=== PATIENT | female | born 1995 | race Caucasian/White ===

== ENCOUNTER 2024-10-06 23:47 | Observation (INO) | payer OTHER ==
--- NOTE | 2024-10-07 00:34 | ED ---
General Adult HPI - General Chief complaint: Abdominal Pain Stated complaint: ABD pain, SOB Time Seen by Provider: 10/06/24 23:50 Source: patient Mode of arrival: ambulatory Limitations: no limitations - History of Present Illness Initial comments: Dictation was produced using Panel[employer] dictation software. please excuse any grammatical, word or spelling errors. Chief Complaint: 28-year-old female with abdominal pain History of Present Illness: Patient is a 28-year-old female was seen by IVF specialist. She had a retrieval procedure performed at [facility] at 10 AM yesterday. Since then she was having significant abdominal pain. Denies any fever, chills or night sweats states that whenever she tries to twist or stand up straight she has upper abdominal pain. Patient denies any bleeding. The ROS documented in this emergency department record has been reviewed and confirmed by me. Those systems with pertinent positive or negative responses have been documented in the HPI. All other systems are other negative and/or noncontributory. - Related Data Allergies Allergy/AdvReac Type Severity Reaction Status Date / Time No Known Allergies Allergy Verified 10/06/24 23:53 Review of Systems ROS Statement: Those systems with pertinent positive or pertinent negative responses have been documented in the HPI. ROS Other: All systems not noted in ROS Statement are negative. Past Medical History Past Medical History: No Reported History History of Any Multi-Drug Resistant Organisms: None Reported Past Surgical History: No Surgical Hx Reported Past Psychological History: Anxiety Smoking Status: Never smoker Past Alcohol Use History: Occasional Past Drug Use History: None Reported General Exam - General Exam Comments Initial Comments: PHYSICAL EXAM: General Impression: Alert and oriented x3, acute distress secondary to pain HEENT: Normocephalic atraumatic, extra-ocular movements intact, pupils equal and reactive to light bilaterally, mucous membranes moist. Cardiovascular: Heart regular rate and rhythm Chest: Able to complete full sentences, no retractions, no tachypnea Abdomen: abdomen soft, diffuse abdominal tenderness, non-distended, no organomegaly Musculoskeletal: Pulses present and equal in all extremities, no peripheral edema Motor: no focal deficits noted Neurological: CN II-XII grossly intact, no focal motor or sensory deficits noted Skin: Intact with no visualized rashes Psych: Normal affect and mood Limitations: no limitations Course Vital Signs 10/06/24 10/07/24 23:50 02:11 Temperature 98.1 F 98.4 F Pulse Rate 82 68 Respiratory 18 18 Rate Blood Pressure 106/69 110/66 O2 Sat by Pulse 100 99 Oximetry - Reevaluation(s) Reevaluation #1: 10/07/24 03:[address] Tami Anthony of [facility] who is familiar with the patient. She was able to access patient's labs which showed that she had a hematocrit of 39 on her most recent blood work. She states that she request that patient have serial hemoglobins hematocrits and monitoring to determine need for any sort of subsequent intervention. She reiterates that typically these do not require any further intervention. Medical Decision Making - Medical Decision Making Was pt. sent in by a medical professional or institution (, PA, SPINE SUPERVISOR, urgent care, hospital, or senior care...) When possible be specific @ -No Did you speak to anyone other than the patient for history (EMS, parent, family, police, friend...)? What history was obtained from this source @ -No Did you review nursing and triage notes (agree or disagree)? Why? @ -I reviewed and agree with nursing and triage notes Were old charts reviewed (outside hosp., previous admission, EMS record, old EKG, old radiological studies, urgent care reports/EKG's, senior care records)? Report findings @ -No old charts were reviewed Differential Diagnosis (chest pain, altered mental status, abdominal pain women, abdominal pain men, vaginal bleeding, musculoskeletal, weakness, fever, dyspnea, syncope, headache, dizziness, GI bleed, back pain, seizure, CVA, palpatations, mental health)? @ -Differential Abdominal Pain Women: Appendicitis, Cholecystitis, diverticulosis, ischemic bowel, pancreatitis, hepatitis, UTI, gastroenteritis, AAA, incarcerated hernia, bowel obstruction, constipation, inflammatory bowel, hepatitis, peptic ulcer disease, splenic infarction, perforated viscus, vulvitis, ovarian torsion, PID, kidney stone, placenta abruption, this is not meant to be an all-inclusive list EKG interpreted by me (3pts min.). @ -None done X-rays interpreted by me (1pt min.). @ -None done CT interpreted by me (1pt min.). @ -CT shows hemoperitoneum likely related to recent procedure with some heterogeneity around the left ovary U/S interpreted by me (1pt. min.). @ -None done What testing was considered but not performed or refused? (CT, X-rays, U/S, labs)? Why? @ -None What meds were considered but not given or refused? Why? @ -None Was smoking cessation discussed for >3mins.? @ -No Were there social determinants of health that impacted care today? How? (Homelessness, low income, unemployed, alcoholism, drug addiction, transportation, low edu. Level, literacy, decrease access to med. care, detention, rehab)? @ -No Was there de-escalation of care discussed even if they declined (Discuss DNR or withdrawal of care, Hospice)? DNR status @ -No What co-morbidities impacted this encounter? (DM, HTN, Smoking, COPD, CAD, Cancer, CVA, ARF, Chemo, Hep., AIDS, mental health diagnosis, sleep apnea, morbid obesity)? @ -None Was patient admitted / discharged? Hospital course, mention meds given and route, prescriptions, significant lab abnormalities, going to OR and other pertinent info. @ -28-year-old female presents to the emergency department with abdominal pain after a retrieval procedure performed at [facility]. Vital signs stable. Patient on initial arrival. To be uncomfortable in acute distress secondary to abdominal pain. Laboratory evaluation obtained. Labs within acceptable limits. CT obtained showing hemoperitoneum likely related to recent reproductive medicine procedure. Case discussed with Dr. Tami Anthony requests observation admission with every 3 hour CBCs and serial abdominal exams. Case discussed with Dr. Sanchez who is agreeable with observation admission. Did you discuss the management of the patient with other professionals (professionals i.e. , PA, SPINE SUPERVISOR, lab, RT, psych nurse, social work associate, hand expansion envelope maker, teacher, security public safety officer, case investigator)? Give summary @ -See above Was critical care preformed (if so, how long)? @ -No Undiagnosed new problem with uncertain prognosis? @ -No Drug Therapy requiring intensive monitoring for toxicity (Heparin, Nitro, Ins ulin, Cardizem)? @ -No Were any procedures done? @ -No Diagnosis/symptom? Acute, or Chronic, or Acute on Chronic? Uncomplicated (without systemic symptoms) or Complicated (systemic symptoms)? @ -Postprocedural hemoperitoneum Side effects of treatment? @ -No Exacerbation, Progression, or Severe Exacerbation? @ -No Poses a threat to life or bodily function? How? (Chest pain, USA, [place], pneumonia, PE, COPD, DKA, ARF, appy, cholecystitis, CVA, Diverticulitis, Homicidal, Suicidal, threat to staff... and all critical care pts) @ -yes - Lab Data Result diagrams: 10/07/24 00:46 10/07/24 00:46 Lab Results 10/07/24 10/07/24 Range/Units 00:46 00:46 WBC 13.38 H (4.50-10.00) 10*3/uL RBC 3.36 L (4.10-5.20) 10*6/uL Hgb 10.6 L (12.0-15.0) g/dL Hct 29.4 L (37.2-46.3) % MCV 87.5 (80.0-97.0) fL MCH 31.5 (27.0-32.0) pg MCHC 36.1 (32.0-37.0) g/dL Plt Count 300 (140-440) 10*3/uL MPV 10.7 (9.5-12.2) fL Immature Gran % (Auto) 0.3 % Neutrophils % 84.7 % Lymphocytes % 8.2 % Monocytes % 6.6 % Eosinophils % 0.1 % Basophils % 0.1 % Immature Gran # 0.04 (0.00-0.04) 10*3/uL Neutrophils # 11.33 H (1.80-7.70) 10*3/uL Lymphocytes # 1.10 (0.90-5.00) 10*3/uL Monocytes # 0.88 (0.20-1.00) 10*3/uL Eosinophils # 0.01 L (0.04-0.35) 10*3/uL Basophils # 0.02 (0.00-0.10) 10*3/uL Sodium 136 L (137-145) mmol/L Potassium 4.2 (3.5-5.1) mmol/L Chloride 104 (98-107) mmol/L Carbon Dioxide 22 (22-30) mmol/L Anion Gap 10 mmol/L BUN 12 (7-17) mg/dL Creatinine 0.63 (0.52-1.04) mg/dL Est GFR (CKD-EPI)AfAm >90 (>60 ml/min/1.73 sqM) Est GFR (CKD-EPI)NonAf >90 (>60 ml/min/1.73 sqM) Glucose 118 H (74-99) mg/dL Calcium 9.6 (8.4-10.2) mg/dL Total Bilirubin 0.2 (0.2-1.3) mg/dL AST 20 (14-36) U/L ALT 17 (4-34) U/L Alkaline Phosphatase 68 (38-126) U/L Total Protein 6.6 (6.3-8.2) g/dL Albumin 4.0 (3.5-5.0) g/dL Lipase 90 (23-300) U/L Disposition Clinical Impression: Hemoperitoneum Disposition: ADMITTED IP TO THIS [facility] Condition: Fair Referrals: None,Stated [Primary Care Provider] - 1-2 days Decision Time: 03:45
[2024-10-07] MEDS: MORPHINE SULFATE 4 MG/ML SYRINGE IV STA (00:57)
[2024-10-07] MEDS: SODIUM CHLORIDE 0.9% 1,000 ML IV STA (00:57)
[2024-10-07 01:17] LABS: Basophils # (A) 0.02 10*3/uL (0.00-0.10); Basophils % (A) 0.1 %; Eosinophils # (A) 0.01 10*3/uL (0.04-0.35); Eosinophils % (A) 0.1 %; HCT 29.4 % (37.2-46.3); HGB 10.6 g/dL (12.0-15.0); Lymphocytes % (A) 8.2 %; MCH 31.5 pg (27.0-32.0); MCHC 36.1 g/dL (32.0-37.0); MCV 87.5 fL (80.0-97.0); Mean Platelet Volume 10.7 fL (9.5-12.2); Monocytes # (A) 0.88 10*3/uL (0.20-1.00); Monocytes % (A) 6.6 %; Neutrophils # (A) 11.33 10*3/uL (1.80-7.70); Neutrophils % (A) 84.7 %; Platelet Count 300 10*3/uL (140-440); RBC 3.36 10*6/uL (4.10-5.20); RDW 12.7 % (11.5-14.5); WBC 13.38 10*3/uL (4.50-10.00)
[2024-10-07 01:26] LABS: ALT 17 U/L (4-34); AST 20 U/L (14-36); African American GFR (CKD) >90 (>60 ml/min/1.73 sqM); Alkaline Phosphatase 68 U/L (38-126); Anion Gap 10 mmol/L; Blood Urea Nitrogen 12 mg/dL (7-17); Calcium 9.6 mg/dL (8.4-10.2); Carbon Dioxide 22 mmol/L (22-30); Chloride 104 mmol/L (98-107); Glucose 118 mg/dL (74-99); Lipase 90 U/L (23-300); Non-African American GFR(CKD) >90 (>60 ml/min/1.73 sqM); Potassium 4.2 mmol/L (3.5-5.1); Sodium 136 mmol/L (137-145); Total Bilirubin 0.2 mg/dL (0.2-1.3); Total Protein 6.6 g/dL (6.3-8.2)
[2024-10-07] MEDS: HYDROmorphone 1 MG/ML 1 ML SYRINGE IVP STA (02:10)
--- NOTE | 2024-10-07 02:23 | CT ---
EXAM: CT Abdomen and Pelvis With Intravenous Contrast CLINICAL HISTORY: post egg retrieval abdominal pain and is now having abdominal pain. TECHNIQUE: Axial computed tomography images of the abdomen and pelvis with intravenous contrast. Coronal and sagittal reconstructions are performed. CTDI is 14.5 mGy and DLP is 704.9 mGy-cm. This CT exam was performed using one or more of the following dose reduction techniques: automated exposure control, adjustment of the mA and/or kV according to patient size, and/or use of iterative reconstruction technique. 674 images COMPARISON: No relevant prior studies available. FINDINGS: Lung bases: Unremarkable. No mass. No consolidation. ABDOMEN: Liver: Unremarkable. No mass. Gallbladder and bile ducts: Unremarkable. No calcified stones. No ductal dilation. Pancreas: Unremarkable. No mass. No ductal dilation. Spleen: Unremarkable. No splenomegaly. Adrenals: Unremarkable. No mass. Kidneys and ureters: Unremarkable. No solid mass. No hydronephrosis. Stomach and bowel: Unremarkable. No obstruction. No mucosal thickening. PELVIS: Appendix: No findings to suggest acute appendicitis. Bladder: Unremarkable. No mass. Reproductive: Unremarkable as visualized. ABDOMEN and PELVIS: Intraperitoneal space: Small to moderate amount of hemoperitoneum, predominant in the pelvis, extending to abdomen, surrounding liver and spleen, likely related to recent procedure. Bilateral adnexa appear enlarged, poorly visualized. The left adnexa is more hyperdense compared to contralateral side on series 202 image 61, probably source of hemoperitoneum. No free air. Bones/joints: No acute findings. Soft tissues: Unremarkable. Vasculature: Unremarkable. No abdominal aortic aneurysm. Lymph nodes: Unremarkable. No enlarged lymph nodes. IMPRESSION: 1. Small to moderate amount of hemoperitoneum, predominant in the pelvis, extending to abdomen, surrounding liver and spleen, likely related to recent procedure. 2. The left adnexa is more hyperdense compared to contralateral side, probably source of hemoperitoneum. Please correlate with procedural history. <MYCVCSECTION> Communications: 10/07/24 02:29 Verify Receipt Verified receipt with LETY Dang in ER for Dr. Banks on 10/07 02:29 (-04:00)
[2024-10-07] MEDS ORDERED: NALOXONE 0.4 MG/ML 1 ML VIAL IV PRN (03:40)
[2024-10-07] MEDS: SODIUM CHLORIDE 0.9% 1,000 ML IV SCH (04:09)
[2024-10-07] MEDS: MORPHINE SULFATE 4 MG/ML SYRINGE IV PRN (04:43)
[2024-10-07] MEDS: ONDANSETRON 4 MG/2 ML VIAL IVP PRN (04:44)
[2024-10-07 08:20] LABS: HCT 26.5 % (37.2-46.3); MCH 30.4 pg (27.0-32.0); MCV 89.5 fL (80.0-97.0); Mean Platelet Volume 10.1 fL (9.5-12.2); Platelet Count 218 10*3/uL (140-440); RBC 2.96 10*6/uL (4.10-5.20)
[2024-10-07 08:21] VITALS: RESP 20; TEMP 98.4
--- NOTE | 2024-10-07 08:25 | P.HPOB ---
History of Present Illness H&P Date: 10/07/24 Chief Complaint: hemoperitoneum 28-year-old status post egg retrieval at [facility] yesterday presented to the emergency room last night complaining of abdominal pain. She had abdominal pain shortness of breath and the pain started soon after her right retrieval from the left side. CT scan showed hemoperitoneum, likely blood came from the left ovary. Her hemoglobin was 10.9 and hematocrit 29. She seems stable and was admitted for serial hemoglobin, hematocrits to be done overnight. This order was never placed by the emergency room physician so did not get done, I will order a stat CBC now. Patient has been receiving Dilaudid for her pain control which is lasting about 4 hours. Review of Systems All systems: negative Constitutional: Denies chills, Denies fever Eyes: denies blurred vision, denies pain Ears, nose, mouth and throat: Denies headache, Denies sore throat Cardiovascular: Denies chest pain, Denies shortness of breath Respiratory: Denies cough Gastrointestinal: Reports abdominal pain, Denies diarrhea, Denies nausea, Denies vomiting Genitourinary: Denies dysuria, Denies hematuria Musculoskeletal: Denies myalgias Integumentary: Denies pruritus, Denies rash Neurological: Denies numbness, Denies weakness Psychiatric: Denies anxiety, Denies depression Endocrine: Denies fatigue, Denies weight change Past Medical History Past Medical History: No Reported History History of Any Multi-Drug Resistant Organisms: None Reported Past Surgical History: No Surgical Hx Reported Past Psychological History: Anxiety Smoking Status: Never smoker Past Alcohol Use History: Occasional Past Drug Use History: None Reported Medications and Allergies Allergies Allergy/AdvReac Type Severity Reaction Status Date / Time No Known Allergies Allergy Verified 10/06/24 23:53 Exam Osteopathic Statement: *. No significant issues noted on an osteopathic structural exam other than those noted in the History and Physical/Consult. Vital Signs Temp Pulse Resp BP Pulse Ox 10/07/24 08:19 98.4 F 88 20 110/68 100 10/07/24 06:47 98.2 F 88 17 102/55 99 10/07/24 02:11 98.4 F 68 18 110/66 99 10/06/24 23:50 98.1 F 82 18 106/69 100 Intake and Output 10/06/24 10/07/24 10/07/24 22:59 06:59 14:59 Other: Weight 63.957 kg Heart: Regular rate and rhythm Lungs: Clear to auscultation bilaterally Abdomen: Soft, minimally distended and tender to deep palpation Extremities: Negative Homans sign Results Result Diagrams: 10/07/24 00:46 10/07/24 00:46 Abnormal Lab Results - Last 24 Hours (Table) 10/07/24 10/07/24 Range/Units 00:46 00:46 WBC 13.38 H (4.50-10.00) 10*3/uL RBC 3.36 L (4.10-5.20) 10*6/uL Hgb 10.6 L (12.0-15.0) g/dL Hct 29.4 L (37.2-46.3) % Neutrophils # 11.33 H (1.80-7.70) 10*3/uL Eosinophils # 0.01 L (0.04-0.35) 10*3/uL Sodium 136 L (137-145) mmol/L Glucose 118 H (74-99) mg/dL Assessment and Plan (1) Hemoperitoneum Current Visit: Yes Status: Acute Code(s): K66.1 - HEMOPERITONEUM SNOMED Code(s): 627477379 Plan: 1. Stat CBC 2. Observe a few more hours and if patient remains stable she may be discharged home.
[2024-10-07] MEDS ORDERED: ACETAMINOPHEN TAB 500 MG TAB PO PRN (11:05)
[2024-10-07] MEDS: IBUPROFEN 600 MG TAB PO PRN (11:13)
--- NOTE | 2024-10-07 12:41 | P.DS ---
Providers Date of admission: 10/07/24 03:40 Expected date of discharge: 10/07/24 Attending physician: Jenny Sanchez Primary care physician: Stated None - Discharge Diagnosis(es) (1) Hemoperitoneum Current Visit: Yes Status: Acute Hospital Course: Patient presented with hemoperitoneum after an egg retrieval yesterday. Her hemoglobin dropped 1 point in 8 hours. Her vital signs are stable. She is not dizzy with standing does have some pressure and bloating. Patient is stable for discharge home given prescriptions for pain medication to help as the hemoperitoneum resolves. She should follow-up with me in a couple weeks to get her hemoglobin checked. Also needs to follow-up with her reproductive endocrinology team as scheduled. Patient Condition at Discharge: Fair Plan - Discharge Summary New Discharge Prescriptions: No Action Ubidecarenone [Co Q-10] 300 mg PO HS Cholecalciferol [Vitamin D3 (25 Mcg = 1000 Iu)] 25 - 50 mcg PO DAILY [id number]-[id number] Acid [-U Capsule (formulary)] 1 cap PO HS Ibuprofen [Motrin Ib] 600 - 800 mg PO Q6H PRN PRN Reason: Pain Acetaminophen Tab [Tylenol Tab] 1,000 mg PO Q6HR PRN PRN Reason: Pain Discharge Medication List Acetaminophen Tab [Tylenol Tab] 1,000 mg PO Q6HR PRN 10/07/24 [History] Cholecalciferol [Vitamin D3 (25 Mcg = 1000 Iu)] 25 - 50 mcg PO DAILY 10/07/24 [History] Ibuprofen [Motrin Ib] 600 - 800 mg PO Q6H PRN 10/07/24 [History] Stf-Geke-Owojn Acid [-U Capsule (formulary)] 1 cap PO HS 10/07/24 [History] Ubidecarenone [Co Q-10] 300 mg PO HS 10/07/24 [History] Follow up Appointment(s)/Referral(s): None,Stated [Primary Care Provider] - 1-2 days Jenny Sanchez DO [Doctor of Osteopathic Medicine] - 4 Weeks Discharge Disposition: HOME SELF-CARE
[2024-10-07 13:11] VITALS: BP 106/66; PULSE 99
== END 2024-10-07 13:09 | disposition home or self-care (01) ==
LOC: EC 23:47 → 6NMEDSUR 10-07 03:40 → 5NMEDONC 10-07 06:34
PROVIDERS: ADMIT Obstetrics & Gynecology; ATTEND Obstetrics & Gynecology
DX: K66.1 Hemoperitoneum (principal); Z98.890 Other specified postprocedural states
CPT/HCPCS: 96376; 96361; 96374; 96375; 99285; 36415; 80053; 83690; 85025; 85027; 74177; G0378 ×2; J2270; J2405; J1171; Q9967